=== PATIENT | male | born 1960 | race Caucasian/White ===

== ENCOUNTER 2024-01-07 13:05 | Outpatient (REF) | payer OTHER, SELFPAY ==
--- NOTE | ~2024-01-07 | XR_ITS ---
EXAMINATION: XR KNEE RIGHT 2 VIEWS CLINICAL INFORMATION: Pain in unspecified knee M25.569. COMPARISON: MR Right knee without contrast 08/16/2022 TECHNIQUE: 3 views of the right knee including AP upright FINDINGS: No fracture or joint effusion. Alignment is anatomic. Joint spaces are maintained. Arterial calcification noted. XR/XR knee RT 3V IMPRESSION: 1. No acute abnormality. 2. Calcific atherosclerotic disease noted. Electronically signed by: Reginald Allan MD 03/10/2024 01:40 PM [facility]
--- NOTE | ~2024-01-07 | XR_ITS ---
EXAMINATION: XR KNEE LEFT 1 VIEW CLINICAL INFORMATION: Pain in unspecified knee M25.569. COMPARISON: None TECHNIQUE: Single upright view of the left knee including right knee FINDINGS: Left knee: The medial lateral compartments are normal. Cannot assess patellofemoral compartment. Surrounding bone and soft tissues unremarkable. Incidental note is normal appearing AP view of the right knee XR/XR knee LT 1V IMPRESSION: Unremarkable single view of left knee. Electronically signed by: Reginald Allan MD 03/10/2024 01:40 PM [facility]
== END 2024-01-07 13:06 | disposition home or self-care (01) ==
LOC: HO.HOSX 13:05
PROVIDERS: Visit Provider Physician Assistant
DX: M25.561 Pain in right knee (principal); M25.562 Pain in left knee
CPT/HCPCS: 73560; 73562

== ENCOUNTER 2024-01-07 14:45 | Outpatient (AMB) | payer OTHER, SELFPAY ==
--- NOTE | 2024-01-07 14:55 | MHC.OFFVIS ---
Intake Visit Reasons: New Pt - right knee pain Intake Note: Howard is a 63 year old male who presents today with a knee brace and his as a new patent for a evaluation of his right knee pain. MRI done on 08/16/22. Patient reports he was told that it is his quadriceps tendon. He states he is having discomfort, and having trouble walking down the stairs. Denies any pain medication. Allergies No Known Allergies Allergy (Verified 01/07/24 15:02) [facility] HPI New Pt - right knee pain: Details: 63-year-old male who presents in the office today, as a new patient, for an evaluation of right knee pain. The patient sustained an injury in 08/2022. He was seen by his PCP and was recommended to consult [facility] [id number] for further evaluation and treatment. MRI of the right knee was obtained on 08/16/22. He has been experiencing right knee pain and difficulty ambulating down the stairs. While in the office today, the patient reports discomfort in the right knee and difficulty ambulating down the stairs. He states he was told the pain is due to quadriceps tendon. He denies any pain medication. [facility] Social History (Updated 01/07/24 @ 15:03 by Iram Yi) Alcohol intake: current Alcohol intake frequency: holidays/special occasions only Patient Tobacco Use Status: Never used Tobacco Current occupational status: employed Current occupation: finisher hand Review of Systems Const All systems reviewed & are unremarkable except as noted in HPI and below Physical Exam Const General: cooperative and no acute distress Orientation/consciousness: patient oriented x3 Resp Effort & Inspection: normal respiratory effort and able to speak in complete sentences Cardio Peripheral pulses: Peripheral pulses 2+ throughout Skin General skin exam: no rashes or lesions noted Neuro General: patient oriented x3 Extrem Other: Right knee: Atrophy noted at the quad tendon attachment site. Able to perform a straight leg raise. Range of motion is 0 to 110 degrees. NVI. Assessment & Plan Assessment & Plan (1) Ruptured, tendon, quadriceps: Code(s): S76.119A - Strain of unspecified quadriceps muscle, fascia and tendon, initial encounter Category: Medical Plan Mr. Huitron is a 63-year-old male who presents in the office today, as a new patient, for an evaluation of right knee pain. The patient sustained an injury in 08/2022. He was seen by his PCP and was recommended to consult [facility] [id number] for further evaluation and treatment. MRI of the right knee was obtained on 08/16/22. He has been experiencing right knee pain and difficulty ambulating down the stairs. While in the office today, the patient reports discomfort in the right knee and difficulty ambulating down the stairs. He states he was told the pain is due to quadriceps tendon. He denies any pain medication. The case was briefly discussed with Dr. Yancey, who was available to speak with me but unable to see the patient, and a collaborative treatment plan was made. I discussed the role of quad tendon repair with allograft. The patient will follow up with Dr. Yancey to discuss in detail about the procedure. Follow-up will be in 1-[address] Yancey, or sooner if needed. X-rays of the right knee, which were obtained while in the office today and were reviewed by me, Mariposa Triplett PA-C, revealed: Patellofemoral arthritis noted. No acute fracture or dislocation. MRI of the right knee, obtained on 08/16/22, revealed: 1. High-grade tearing of the quadriceps tendon, with apparent thin strand remaining along the deep surface. There appears to be a full-thickness defect/tear of the lateral myotendinous region measuring 2.9 cm, craniocaudal extent of the tear is suboptimally evaluated, measuring at least 2.1 cm craniocaudal. There is vastus medialis and vastus lateralis muscle strain/partial tearing. There is sprain/partial tearing of the medial and lateral patellofemoral ligaments\retinaculum. Prominent edema/fluid/hematoma in the region of the tear and the anterior soft tissues. Femoral MRI to further evaluate extent of tear can be obtained as clinically warranted. 2. Menisci appear intact without discrete tear. 3. Mild chondromalacia patella. 4. Circumferential prominent subcutaneous edema. Orders: Orders XR knee RT 3V 01/07/24 M25.569 - Pain in unspecified knee XR knee LT 1V 01/07/24 M25.569 - Pain in unspecified knee Patient Instructions: Scribed by Judith Bajwa, certified medical dosimetrist, for Mariposa Triplett PA-C on 01/07/24 at 3:22 pm EST. Coding Level of Care Code New Pt Level 3 (07503) Diagnoses Ruptured, tendon, quadriceps S76.119A
== END 2024-01-07 15:38 | disposition home or self-care (01) ==
LOC: HO.HOS 14:46
PROVIDERS: Visit Provider Physician Assistant
DX: S76.119A Strain of unspecified quadriceps muscle, fascia and tendon, initial encounter (principal)
CPT/HCPCS: 99203

== ENCOUNTER 2024-01-23 13:38 | Outpatient (AMB) | payer OTHER, SELFPAY ==
--- NOTE | 2024-01-23 13:50 | A.OFFVIS_ITS ---
Vital Signs 01/23/24 13:52 Height 5 ft 10 in Weight 183 lb BMI 26.3 Intake Visit Reasons: OV - Right Quad Tendon Rupture - Discuss Sx Intake Note: Howard is a 63 year old male who presents today for a follow up of his right quadriceps rupture. DOI: Aug 08 2022 He was running across the street, he felt stiffness and took a fall. Patient currently complains of discomfort and difficult ambulating down the stairs. He presents today to discuss possible surgical intervention, quadriceps tendon repair with allograft. Allergies No Known Allergies Allergy (Verified 01/07/24 15:02) HPI HPI OV - Right Quad Tendon Rupture - Discuss Sx: Details: Howard is a 63 year old male who presents today for a follow up of his right quadriceps rupture. DOI: Aug 08 2022 He was running across the street, he felt stiffness and took a fall. Patient currently complains of discomfort and difficult ambulating down the stairs. He presents today to discuss possible surgical intervention, quadriceps tendon repair with allograft. [facility] Social History (Updated 01/07/24 @ 15:03 by Iram Yi) Alcohol intake: current Alcohol intake frequency: holidays/special occasions only Patient Tobacco Use Status: Never used Tobacco Current occupational status: employed Current occupation: director cost Physical Exam Vital Signs: BMI result Body Mass Index 26.3 Extrem Other: Partial tear of the right quad with full range of motion and good strength in extension. No defect. Results Reviewed Results Reviewed: Mild patellar arthritis but otherwise unremarkable radiographs Assessment & Plan Assessment & Plan (1) Ruptured, tendon, quadriceps: Code(s): S76.119A - Strain of unspecified quadriceps muscle, fascia and tendon, initial encounter Category: Medical Plan: Over a year status post high-grade but partial right quadriceps tendon rupture treated nonoperatively. He is doing well. He has full range of motion. No intervention warranted. Coding Level of Care Code New Pt Level 3 (59079) Diagnoses Ruptured, tendon, quadriceps S76.119A
[2024-01-23 13:52] VITALS: BMI 26.3
== END 2024-01-23 15:23 | disposition home or self-care (01) ==
PROVIDERS: Visit Provider Orthopaedic Surgery
DX: S76.119A Strain of unspecified quadriceps muscle, fascia and tendon, initial encounter (principal)
CPT/HCPCS: 99203